=== PATIENT | female | born 1970 | race Caucasian/White ===

== ENCOUNTER 2022-07-29 21:56 | Inpatient (IN) | payer MEDICAID ==
[~2022-07-29] VITALS: Ht 170.2 cm; Wt 63.5 kg
--- NOTE | 2022-07-29 22:14 | NUR ---
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 side rails up will continue to monitor.
[2022-07-29 23:01] LABS: HEMATOCRIT 32.8 % (31.2-41.9); MEAN CORPUSCULAR HEMOGLOBIN 29.1 uug (24.7-32.8); MEAN CORPUSCULAR VOLUME 88.5 fL (75.5-95.3); PLATELET COUNT (AUTO) 281 K/uL (179-408)
[2022-07-29 23:43] LABS: CARBON DIOXIDE 26 mmol/L (21-32); CHLORIDE 104 mmol/L (98-107); CREATININE 0.9 mg/dL (0.6-1.3); GLUCOSE 122 mg/dL (74-106); POTASSIUM 3.3 mmol/L (3.5-5.1); UREA NITROGEN, BLOOD 20 mg/dL (7-18)
--- NOTE | 2022-07-29 23:45 | NUR ---
Family at bedside no voiced c/o, awaiting lab results and MD re-eval. No s/s of any distress at this time.
[2022-07-29 23:59] LABS: ALANINE AMINOTRANSFERASE 33 U/L (14-59); ALKALINE PHOSPHATASE 56 U/L (50-136); ASPARTATE AMINOTRANSFERASE 14 U/L (15-37); BILIRUBIN,DIRECT < 0.1 mg/dL (0.0-0.2); BILIRUBIN,TOTAL 0.2 mg/dL (0.2-1.0)
--- NOTE | 2022-07-30 00:09 | NUR ---
requested and given water at this time.
[2022-07-30] MEDS ORDERED: KETOROLAC TROMETHAMINE 30 MG INJ IVP ONE (00:15)
[2022-07-30] MEDS ORDERED: MORPHINE SULFATE 4 MG/1 ML DISP.SYRIN IV ONE (00:15)
[2022-07-30] MEDS ORDERED: KETOROLAC TROMETHAMINE 30 MG INJ ONE (00:34)
[2022-07-30] MEDS ORDERED: MORPHINE SULFATE 4 MG/1 ML DISP.SYRIN ONE (00:35)
--- NOTE | 2022-07-30 00:41 | NUR ---
Medicated as per order for c/o chest pain, family remains at bedside.
--- NOTE | 2022-07-30 01:08 | NUR ---
Patient states pain is better at this time.
--- NOTE | 2022-07-30 02:39 | NUR ---
was at bedside for ultrasound of the heart, informed patient that she will be admitted to the hospital, awaiting room assignment.
--- NOTE | 2022-07-30 04:08 | NUR ---
Patient continues to rest, remains easy to arouse, no voiced c/o at this time.
--- NOTE | 2022-07-30 06:35 | NUR ---
Patient resting, remains easy to arouse, no change in prior assessment, positioned self for comfort.
[2022-07-30] MEDS ORDERED: MAG HYDROX/AL HYDROX/SIMETH 30 ML LIQUID UDC PO PRN (07:45)
[2022-07-30] MEDS ORDERED: NITROGLYCERIN 0.4 MG/TAB BOTTLE SL PRN (07:45)
[2022-07-30] MEDS ORDERED: DOCUSATE SODIUM 100 MG CAPSULE PO PRN (07:45)
[2022-07-30] MEDS ORDERED: ONDANSETRON 4 MG/2 ML VIAL IV PRN (07:45)
[2022-07-30] MEDS ORDERED: MORPHINE SULFATE 2 MG/1 ML DISP.SYRIN IV PRN (07:45)
[2022-07-30] MEDS ORDERED: ACETAMINOPHEN 325 MG TABLET PO PRN (07:45)
[2022-07-30] MEDS ORDERED: ASPIRIN 81 MG TAB.CHEW PO SCH (09:00)
[2022-07-30] MEDS: IBUPROFEN 800 MG TABLET PO SCH ×2 (12:30→17:30)
[2022-07-30] MEDS ORDERED: KETOROLAC TROMETHAMINE 15 MG INJ IVP ONE (13:00)
--- NOTE | 2022-07-30 13:00 | NUR ---
RECEIVED PT FROM ED VIA [facility] FROM [facility]. NV IS NOT COMPLAINING OF PAIN AND WHEN ASKED ABOUT HER PAIN, SHE SAID SHE FEELS SOME PAIN IN HER CHEST, LEVEL 5 ON THE SCALE OF 1-10. PT ASKED FOR SOMETHING TO EAT. PROVIDED HER WITH A SANDWICH. NO DISTRESS AT THE MOMENT. WILL CONTINUE TO MONITOR.
[2022-07-30] MEDS: COLCHICINE 0.6 MG TABLET PO SCH ×2 (14:49→20:16)
[2022-07-30 16:11] LABS: *RHEUMATOID FACTOR SCREEN NEGATIVE (NEGATIVE)
[2022-07-30 17:34] VITALS: BP 116/68
--- NOTE | 2022-07-30 19:35 | NUR ---
Received patient awake, no sob, complain of mild chest area pain but did not ask for pain meds, ambulate to her room, sinus rhythm sinus tachy 101, cont to monitor.
[2022-07-30 20:40] VITALS: BP 113/74
[2022-07-31] VITALS: BP 114/70
[2022-07-31 05:43] VITALS: BP 103/61
--- NOTE | 2022-07-31 06:20 | NUR ---
Patient asleep but arousable no sob still complain of mild left chest area pain but did not ask for pain meds, patient given tylenol 650mg for mild pain with help, sinus rhythm on tele 68, ambulatory continent cont to monitor.
[2022-07-31 07:13] LABS: CREATININE 0.8 mg/dL (0.6-1.3)
[2022-07-31 07:21] LABS: BILIRUBIN,TOTAL 0.4 mg/dL (0.2-1.0); MAGNESIUM 1.9 mg/dL (1.8-2.4); PHOSPHOROUS 3.4 mg/dL (2.5-4.9); TOTAL PROTEIN, SERUM 6.4 g/dL (6.4-8.2)
[2022-07-31 07:30] LABS: THYROID STIMULATING HORMONE 3.507 mIU/mL (0.358-3.740)
[2022-07-31 07:37] LABS: MEAN CORPUSCULAR HEMOGLOBIN 29.7 uug (24.7-32.8); MEAN CORPUSCULAR VOLUME 88.7 fL (75.5-95.3); PLATELET COUNT (AUTO) 288 K/uL (179-408)
[2022-07-31] MEDS: COLCHICINE 0.6 MG TABLET PO SCH (08:07)
[2022-07-31] MEDS: IBUPROFEN 800 MG TABLET PO SCH ×2 (08:08→12:00)
[2022-07-31] MEDS ORDERED: INDO-13 PO (11:19)
[2022-07-31] MEDS ORDERED: Colchicine PO (11:19)
[2022-07-31 12:07] LABS: *ANTI-SCLERODERMA-70 AB <0.2 AI (0.0-0.9); *SJOGREN'S ANTI-SS-A <0.2 AI (0.0-0.9); *SJOGREN'S ANTI-SS-B <0.2 AI (0.0-0.9); *SMITH ANTIBODIES <0.2 AI (0.0-0.9); ANTI-DNA(DS) AB, QN 1 IU/mL (0-9)
--- NOTE | 2022-07-31 12:30 | NUR ---
Used recycling center operator device with face time. Brush Machine Setter #[id number] English. Discussed with pt discharge instructions to f/u with pmd with 1 week. Pt stated that she doesn't have a PMD. Instructed pt to discuss matter with her insurance to guide her which PMD is available for her. Pt acknowledged that she will f/u with DR Willoughby. Per pt all records are to be released to dr willoughby. Record release and valuable signed by pt. Discussed pt discharge summary written by Manisha Farmer Hospitalist - discussed that her left neck pain could be from arthritis. PT verbalized understanding. Educated pt to take her Meds with food. Prescription given to patient. IV taken out. Pt refused ibuprofen as pt will be picked up by her son at 1300.
--- NOTE | 2022-07-31 13:00 | NUR ---
Pt picked up by her son. prescription given to patient. Pt is in no acute distress upon d/c no sob noted.
== END 2022-07-31 13:00 | disposition home or self-care (01) | DRG 207 ==
LOC: ER 21:56 → TELE 07-30 11:41
PROVIDERS: ADMIT Registered Nurse; ATTEND Registered Nurse
DX: I31.9 Disease of pericardium, unspecified (principal); E03.9 Hypothyroidism, unspecified; E86.0 Dehydration; I51.7 Cardiomegaly; Z20.822 Contact with and (suspected) exposure to COVID-19; E87.6 Hypokalemia
CPT/HCPCS: 36415; 71045; 83735; 84100; 84443; 84484; 85025; 85651; 86038; 86140; 86430; 93005; 93307; A4663; G0378; J1885; J2270